=== PATIENT | male | born 1985 | race Caucasian/White ===

== ENCOUNTER → 2023-04-19 | Outpatient (CLI) | payer BC ==
[2023-04-19 16:36] LABS: HEMATOCRIT 42.5 % (42.0-52.0); HEMOGLOBIN 14.7 g/dL (13.5-18.0); MEAN PLATELET VOLUME 10.4 fl (7.4-10.4); RED BLOOD COUNT 5.06 M/mm3 (4.20-5.60); RED CELL DISTRIBUTION WIDTH 11.8 % (11.5-14.5); WHITE BLOOD COUNT 7.1 K/mm3 (4.8-10.8)
[2023-04-19 16:40] LABS: SODIUM 142 mmol/L (136-145)
[2023-04-19 16:41] LABS: CALCIUM 9.9 mg/dL (8.3-10.5)
[2023-04-19 16:42] LABS: GLUCOSE 126 mg/dL (75-110); TOTAL PROTEIN 7.7 g/dL (6.4-8.3)
[2023-04-19 16:43] LABS: CARBON DIOXIDE 24 mmol/L (22-29)
[2023-04-19 16:44] LABS: TOTAL BILIRUBIN 0.4 mg/dL (0.2-1.2)
[2023-04-19 16:48] LABS: AST-SGOT 15 U/L (5-34)
[2023-04-19 16:49] LABS: ALT/SGPT 17 U/L (0-55)
[2023-04-19 16:58] LABS: TROPONIN-I < 0.030 ng/mL (0.00-0.033)
== END ==
LOC: RAD 15:38
PROVIDERS: Nurse Practitioner Family
DX: R00.2 Palpitations (principal); R05.9 Cough, unspecified